=== PATIENT | male | born 1940 | race Caucasian/White ===

== ENCOUNTER → 2020-04-21 07:31 | Outpatient (CLI) | payer MEDICARE, SELFPAY ==
--- NOTE | ~2020-04-21 | XR_ITS ---
XR chest 2V DATE: 04/21/2020 07:50 INDICATION: Hypertension. Tobacco smoker. TECHNIQUE: PA and lateral views COMPARISON: 12/04/2018 2 view chest FINDINGS: Normal heart size. There is aortic calcification and mild unfolding. No hilar or mediastina l enlargement. No pulmonary infiltrate or consolidation, pleural effusion or pulmonary vascular congestion or pneumo thorax is detected. Degenerative spurring of the thoracic spine. Prosthetic right glenohumeral joint IMPRESSION: No active cardiopulmonary disease Aortic atherosclerosis Reviewed, dictated and finalized at location A. ASSOCIATE
== END ==
PROVIDERS: PCP Family Medicine; Visit Provider Family Medicine
DX: Z87.891 Personal history of nicotine dependence (principal); I10 Essential (primary) hypertension; I70.0 Atherosclerosis of aorta
CPT/HCPCS: 71046

== ENCOUNTER 2021-10-12 00:41 | Day surgery (SDC) | payer MEDICARE, SELFPAY ==
[2021-09-28 08:26] VITALS: BMI 29.3
[2021-10-12 11:40] VITALS: BP 157/78; PULSE 78; RESP 18; TEMP 36.1; O2SAT 100
[2021-10-12] MEDS: LACTATED RINGERS 1,000 ML 150 ML IV CONT (11:44)
--- NOTE | 2021-10-12 11:53 | WPDGICN ---
Assessment and Plan Assessment and plan (1) Positive colorectal cancer screening using Cologuard test: Code(s): R19.5 - Other fecal abnormalities Status: Acute Assessment and Plan: Patient has positive Cologuard test. For this reason screening colonoscopy will be performed. This report follows separately. GI Consult Note Consult date/time: 10/12/21 11:53 Reason for consult: Positive Cologuard test. HPI: Giovanni Escoto is a 81 year old male Presents for screening colonoscopy because of positive Cologuard test. Patient reports that his current weight appetite and bowel movements are normal. He denies abdominal pain. Patient has had no bleeding. Patient's last colonoscopy 15 years ago was unremarkable. Recently had Cologuard test was found to be positive. Patient returns today for screening colonoscopy because of this. Review of Systems Review of Systems: Review of systems noncontributory. [facility] Past Medical History Medical History (Updated 09/26/21 @ 07:09 by Marcellus Leroy MD) Basal cell carcinoma BMI greater than 30 Changing skin lesion CKD (chronic kidney disease) stage 3, GFR 30-59 ml/min Essential hypertension Need for tetanus booster Prostate cancer Screen for colon cancer Surgical History Surgical History H/O left knee surgery History of carpal tunnel release History of prostate surgery Family History Family History Other Malignant neoplasm of prostate Social History Social History Smoking packs per day: 1 Smoking cigarettes per day: 20.0 Years smoked: 40 Smoking pack-years: 40.00 Smoking status: Former smoker Tobacco type: cigarettes Alcohol intake: current Drinks per week: 7 Substance use: never Substance use type: does not use Living arrangements: with family Gender identity (if verbalized by the patient): Male Sexual Orientation (if Verbalized by the Patient): Straight or Heterosexual Meds Home Medications and Allergies Home Medications Medication Instructions Recorded Confirmed Type aspirin 81 mg tablet,delayed 81 mg PO DAILY 08/19/21 09/28/21 History release (Adult Aspirin Regimen) calcium carbonate 500 mg calcium 500 mg PO DAILY 09/28/21 09/28/21 History (1,250 mg) tablet cholecalciferol (vitamin D3) 25 25 mcg PO DAILY 09/28/21 09/28/21 History mcg (1,000 unit) tablet (Vitamin D3) cinnamon bark 500 mg capsule 500 mg PO DAILY 09/28/21 09/28/21 History garlic 300 mg tablet 300 mg PO DAILY 09/28/21 09/28/21 History magnesium oxide 400 mg PO DAILY 09/28/21 09/28/21 History multivitamin with minerals 1 tablet PO DAILY 09/28/21 09/28/21 History omega-3 fatty acids-vitamin E 1 cap PO DAILY 09/28/21 09/28/21 History 1,000 mg capsule vitamin B complex 1 tablet PO DAILY 09/28/21 09/28/21 History zinc 50 mg tablet 50 mg PO DAILY 09/28/21 09/28/21 History Allergies Allergy/AdvReac Type Severity Reaction Status Date / Time No Known Allergies Allergy Verified 10/12/21 11:39 Vital Signs Vital Signs - 24 hr 10/12/21 11:40 Temperature 97.0 F L Pulse Rate 78 Respiratory Rate 18 Blood Pressure 157/78 H Pulse Oximetry 100 Oxygen Delivery Room Air Exam Narrative: Physical exam reveals patient to be alert. Vital signs stable. HEENT exam is unremarkable. Patient is anicteric. Lungs are clear to auscultation and percussion. Heart is without murmur or extra sounds. Abdominal exam bowel sounds are present soft nontender with no organomegaly. Digital external rectal exam is normal.
--- NOTE | 2021-10-12 13:38 | WPDANESEPPF ---
Anes - Initial Pre Proc Eval Procedure: Operation Date: 10/12/21 13:00 Proposed Procedures p Colonoscopy - Jluis Bustamante MD Date/Time: 10/12/21 13:38 Surgeon: Jluis Bustamante MD Pre Op Diagnosis: positive cologuard Patient Data Age: 81 Gender: M Height: 1.7 m Weight: 85 kg Last Vital Signs Temp 97.0 F L 10/12/21 11:40 Pulse 78 10/12/21 11:40 Resp 18 10/12/21 11:40 BP 157/78 H 10/12/21 11:40 Pulse Ox 100 10/12/21 11:40 O2 Del Method Room Air 10/12/21 11:40 Allergies Allergy/AdvReac Type Severity Reaction Status Date / Time No Known Allergies Allergy Verified 10/12/21 11:39 Home Medications Medication Instructions Recorded Confirmed Type aspirin 81 mg tablet,delayed 81 mg PO DAILY 08/19/21 09/28/21 History release (Adult Aspirin Regimen) calcium carbonate 500 mg calcium 500 mg PO DAILY 09/28/21 09/28/21 History (1,250 mg) tablet cholecalciferol (vitamin D3) 25 25 mcg PO DAILY 09/28/21 09/28/21 History mcg (1,000 unit) tablet (Vitamin D3) cinnamon bark 500 mg capsule 500 mg PO DAILY 09/28/21 09/28/21 History garlic 300 mg tablet 300 mg PO DAILY 09/28/21 09/28/21 History magnesium oxide 400 mg PO DAILY 09/28/21 09/28/21 History multivitamin with minerals 1 tablet PO DAILY 09/28/21 09/28/21 History omega-3 fatty acids-vitamin E 1 cap PO DAILY 09/28/21 09/28/21 History 1,000 mg capsule vitamin B complex 1 tablet PO DAILY 09/28/21 09/28/21 History zinc 50 mg tablet 50 mg PO DAILY 09/28/21 09/28/21 History Patient hx anesthesia problems: none Family hx anesthesia problems: none Results Review: All pre-operative results and documents have been reviewed as part of the pre-operative evaluation. [facility] Past Medical History Medical History (Updated 09/26/21 @ 07:09 by Marcellus Leroy MD) Basal cell carcinoma BMI greater than 30 Changing skin lesion CKD (chronic kidney disease) stage 3, GFR 30-59 ml/min Essential hypertension Need for tetanus booster Prostate cancer Screen for colon cancer Surgical History Surgical History H/O left knee surgery History of carpal tunnel release History of prostate surgery Family History Family History Other Malignant neoplasm of prostate Social History Social History Smoking packs per day: 1 Smoking cigarettes per day: 20.0 Years smoked: 40 Smoking pack-years: 40.00 Smoking status: Former smoker Tobacco type: cigarettes Alcohol intake: current Drinks per week: 7 Substance use: never Substance use type: does not use Living arrangements: with family Gender identity (if verbalized by the patient): Male Sexual Orientation (if Verbalized by the Patient): Straight or Heterosexual Anes - Eval Final PreProcedure Day of Procedure 10/12/21 13:38 Patient weight: obese Heart: regular rate and rhythm Lungs: clear to auscultation Airway: Mallampati scale class III Neurological: alert and oriented Last oral intake: >/= 8 hours ASA classification: III Emergent: no Anesthetic plan: proceed Anesthesia type and monitoring: general GIVS and standard monitoring Results Review: All pre-operative results and documents have been reviewed as part of the pre-operative evaluation. Informed Consent: The patient's anesthetic plan and its attendant risks and benefits were discussed with the patient/family/POA. Questions were solicited and answers provided to the satisfaction of the patient/family/POA.
[2021-10-12 13:43] VITALS: BP 130/69; PULSE 78; RESP 14; O2SAT 97
[2021-10-12 13:53] VITALS: BP 124/65; PULSE 74; RESP 14; O2SAT 97
[2021-10-12 14:03] VITALS: BP 136/85; PULSE 72; RESP 16; O2SAT 97
== END 2021-10-12 14:16 | disposition home or self-care (01) ==
PROVIDERS: PCP Family Medicine; Visit Provider Internal Medicine Gastroenterology
PROC: 0DJD8ZZ Inspection of Lower Intestinal Tract, Via Natural or Artificial Opening Endoscopic (ICD-10-PCS; CPT 45378; principal; 2021-10-12 13:00)
DX: R19.5 Other fecal abnormalities (principal); K57.30 Diverticulosis of large intestine without perforation or abscess without bleeding; K64.8 Other hemorrhoids; I12.9 Hypertensive chronic kidney disease with stage 1 through stage 4 chronic kidney disease, or unspecified chronic kidney disease; N18.30 Chronic kidney disease, stage 3 unspecified; Z87.891 Personal history of nicotine dependence; Z79.82 Long term (current) use of aspirin
CPT/HCPCS: 45378; J2001; J2704; J7120

== ENCOUNTER → 2023-04-13 10:51 | Outpatient (CLI) | payer MEDICARE, SELFPAY ==
--- NOTE | ~2023-04-13 | XR_ITS ---
XR forearm LT 2V DATE: 04/13/2023 11:06 INDICATION: Disorder of bone TECHNIQUE: AP and lateral views COMPARISON: None FINDINGS: Mild dorsal olecranon process spurring. 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 Severe osteoarthritic change at the radial ulnar joint. There is osteoarthritic change at the carpal region including first carpometacarpal joint. No fracture or dislocation, periosteal reaction or bone destruction is detected. 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
== END ==
PROVIDERS: PCP Family Medicine; Visit Provider Family Medicine
DX: M89.8X3 Other specified disorders of bone, forearm (principal); M19.032 Primary osteoarthritis, left wrist
CPT/HCPCS: 73090

== ENCOUNTER → 2023-05-17 11:13 | Outpatient (CLI) | payer MEDICARE, SELFPAY ==
--- NOTE | ~2023-05-17 | XR_ITS ---
Clinical Indication: Subacute cough PA and lateral views of the chest: Comparison: 04/21/2020 Findings: The lungs are clear, without evidence of focal consolidation or pleural effusion. Cardiome diastinal silhouette is within normal limits. Bones and soft tissues are unremarkable, aside from rig ht shoulder arthroplasty. Impression: Normal chest. Reviewed, dictated and finalized at location . RAGE MANAGER Impression: Normal chest.
== END ==
PROVIDERS: PCP Family Medicine; Visit Provider Family Medicine
DX: R05.2 Subacute cough (principal); D64.9 Anemia, unspecified; N18.31 Chronic kidney disease, stage 3a
CPT/HCPCS: 71046

== ENCOUNTER 2024-07-08 14:58 | Emergency (ER) | payer MEDICARE, SELFPAY ==
[2024-07-08 15:04] VITALS: BP 170/81; PULSE 81; RESP 18; TEMP 36.6; O2SAT 96
--- NOTE | 2024-07-08 15:47 | ED_ITS ---
HPI - Wound/Laceration General Chief Complaint: Wound/Laceration Stated Complaint: laceration to top of R. hand, fat exposed Time Seen by Provider: 07/08/24 15:46 Source: patient Mode of arrival: ambulatory Limitations: no limitations History of Present Illness HPI narrative: This is a 84-year-old male who presents to the ED for chief complaint of right hand laceration injury that occurred just prior to arrival. Patient states he was working with a band saw when his hand accidentally slipped. Reports laceration to the dorsum of the right hand. Denies loss of range of motion or sensation. Denies weakness. Denies any further injury. States last tetanus shot was 2 years ago. Related Data Home Medications ?Medication ?Instructions ?Recorded ?Confirmed ?Last Taken ?Type aspirin 81 mg tablet,delayed 81 mg PO DAILY 08/19/21 06/19/24 10/11/21 History release (Adult Aspirin Regimen) calcium carbonate 500 mg PO DAILY 09/28/21 06/19/24 10/11/21 History cholecalciferol (vitamin D3) 25 25 mcg PO DAILY 09/28/21 06/19/24 10/11/21 History mcg (1,000 unit) tablet (Vitamin D3) magnesium oxide 400 mg PO DAILY 09/28/21 06/19/24 10/11/21 History multivitamin with minerals 1 tablet PO DAILY 09/28/21 06/19/24 10/11/21 History omega-3 fatty acids-vitamin E 1 cap PO DAILY 09/28/21 06/19/24 10/11/21 History 1,000 mg capsule zinc 50 mg tablet 50 mg PO DAILY 09/28/21 06/19/24 10/11/21 History vitamin A-vitamin C-vit E-min 1 tablet PO DAILY 10/03/22 06/19/24 Unknown History tablet potassium citrate 99 mg capsule mg PO 12/08/22 06/19/24 Unknown History cinnamon bark 500 mg capsule 500 mg PO DAILY 03/18/24 06/19/24 Unknown History selenium 200 mcg capsule 200 mcg PO DAILY 03/18/24 06/19/24 Unknown History vit C 50 mg-E 15 unit-zinc cit 4.5 2 tablet PO DAILY 03/18/24 06/19/24 Unknown History mg-lutein 2.5 mg-zeaxan chew tablet (ipvive) Allergies Allergy/AdvReac Type Severity Reaction Status Date / Time No Known Allergies Allergy Verified 07/08/24 14:59 Review of Systems Review of Systems: All systems as dictated in [facility] Past Medical History Medical History Open-angle glaucoma Vitamin D deficiency Cough Pain in left ulna Arthritis of wrist Anemia BMI (body mass index) 20.0-29.9 Basal cell carcinoma CKD (chronic kidney disease) stage 3, GFR 30-59 ml/min Need for tetanus booster Screen for colon cancer Essential hypertension Changing skin lesion BMI greater than 30 Prostate cancer Surgical History Surgical History History of prostate surgery H/O left knee surgery History of carpal tunnel release Family History Family History Father Malignant neoplasm of prostate Mother No problems noted. Sibling CHF (congestive heart failure) Obesity Sibling Diabetes mellitus Social History Social History Smoking packs per day: 1 Smoking cigarettes per day: 20.0 Years smoked: 40 Smoking pack-years: 40.00 Smoking status: Former smoker (Quit ~2004) Tobacco type: cigarettes Second hand tobacco smoke exposure: Yes Alcohol intake: current Drinks per week: 7 Substance use: never Substance use type: does not use Lack of Transportation: No Lack of Food: Never True Current Housing: I Have Housing Concerned About Future Housing: No Difficulty Paying Gas/Electric Bills: No Difficulty Paying for Meds: No Currently Unemployed: No Education: High School Diploma/GED Difficulty w/ Childcare or Family Care: No Living arrangements: with family Occupation/Education: retired 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 Gender identity (if verbalized by the patient): Male Sexual Orientation (if Verbalized by the Patient): Straight or Heterosexual Exam Narrative: GENERAL: Well-appearing, well-nourished, and in no acute distress. HEAD: Normocephalic, atraumatic. MSK: Normal range of motion. No edema. Full strength of the right hand. SKIN: 3 cm laceration to the dorsum of the right hand just proximal to 4th and 5th M CP. No active bleeding. NEURO: Alert and oriented x4. No focal deficits. PSYCH: Normal mood and affect. Course Vital Signs Vital signs: Vital Signs Temperature 98 F 07/08/24 15:04 Pulse Rate 81 07/08/24 15:04 Respiratory Rate 18 07/08/24 15:04 Blood Pressure 170/81 H 07/08/24 15:04 Pulse Oximetry 96 07/08/24 15:04 Oxygen Delivery Room Air 07/08/24 15:04 Temperature 98 F 07/08/24 15:04 Pulse Rate 81 07/08/24 15:04 Respiratory Rate 18 07/08/24 15:04 Blood Pressure 170/81 H 07/08/24 15:04 Pulse Oximetry 96 07/08/24 15:04 Oxygen Delivery Room Air 07/08/24 15:04 Procedures Laceration Laceration 1: Date: 07/08/24 Time: 16:15 Site: hand Side (If applicable): right Size (cm): 3 Description: linear Depth: involves tendon Local Anesthetic: lidocaine 1% and with epi Amount of anesthesia used (mL): 2 Pre-repair: wound explored and irrigated extensively ====== Skin Level ====== Skin layer closed with: nylon Size (cm): 4-0 Number of sutures: 5 Technique: simple, interrupted ====== Subcutaneous Layer ====== Subcutaneous layer closed with: vicryl Size: 4-0 Number of sutures: 1 Technique: simple, interrupted ====== Muscle Layer ====== ====== Tendon Layer ====== MDM - Wound/Laceration MDM Narrative Medical decision making narrative: This is a 84-year-old male who presents to the ED for chief complaint of laceration injury that occurred just prior to arrival. Vitals are normal. Exam remarkable for the above with a 3 cm laceration to the dorsum of the right hand. No active bleeding. There is slight tendon damage noted in the wound bed, however is strength is preserved. Laceration was well irrigated and cleaned here in the ED. It was closed primarily with nylon sutures at the skin level. One 4-0 Vicryl suture was placed in the extensor tendon. Remained neurovascularly intact after sutures. Laceration instructions given. Rx for prophylactic antibiotics given. He is up-to-date on tetanus Patient will be discharged in stable condition. Supportive measures discussed and return precautions given. Patient is understanding and agreeable with plan for discharge with PCP follow-up. Discharge Plan Discharge Clinical Impression: Laceration Patient Disposition: Home, Self-Care Condition: Stable Instructions: Antibiotic Form, Laceration (ED) Additional Instructions: Keep wound clean and dry. Do not soak, take baths, or swim until wound is completely healed. If any signs of infection such as redness, swelling, increasing pain, drainage of purulent discharge, streaks up your extremity develop, seek medical attention immediately. Followup with your primary care provider in [7] days for suture removal. Please also take preventative antibiotics as prescribed Patient Language: Solomon Islander Prescriptions: New cephalexin 500 mg capsule 500 mg PO Q8H 5 Days Qty: 15 0RF No Action vitamin A-vitamin C-vit E-min Tablet 1 tablet PO DAILY amlodipine 5 mg tablet 5 mg PO DAILY Qty: 90 1RF aspirin [Adult Aspirin Regimen] 81 mg tablet,delayed release (DR/EC) 81 mg PO DAILY potassium citrate 99 mg capsule PO diclofenac sodium 1 % gel 2 g topical QID Qty: 100 0RF Rx Instructions: apply to left forearm [facility] 50 mg-15 unit- 4.5 mg-2.5 mg tablet,chewable 2 tablet PO DAILY cinnamon bark 500 mg capsule 500 mg PO DAILY selenium 200 mcg capsule 200 mcg PO DAILY ICaps Tablet Extended Release 1 tablet PO DAILY calcium carbonate [Calcium 500] 500 mg calcium (1,250 mg) Tablet 500 mg PO DAILY zinc 50 mg Tablet 50 mg PO DAILY Fish Oil 1,000 mg Capsule 1 cap PO DAILY cholecalciferol (vitamin D3) [Vitamin D3] 25 mcg (1,000 unit) Tablet 25 mcg PO DAILY magnesium oxide 400 mg magnesium Tablet 400 mg PO DAILY pantoprazole 40 mg tablet,delayed release (DR/EC) See Rx Instructions .ROUTE .COMPLEX Qty: 90 3RF Dose Instruction: TAKE 1 TABLET BY MOUTH EVERY DAY IN THE MORNING Rx Instructions: TAKE 1 TABLET BY MOUTH EVERY DAY IN THE MORNING Follow-up/Referrals: Marcellus Leroy MD [Primary Care Provider] - Time of Disposition: 16:14
--- OUTSIDE RECORDS SUMMARY | 2024-07-08 17:31 | XMS_ITS | Encounter Summary ---
Author Organization [facility] Address [address] [place] [address] Care Team Providers Care Ad Clerk Name Role Phone Unavailable Primary Care Provider Unavailabl e Encounter Details Date Type Department Care Team (Late st Contact Info) Description 09/16/2021 Lab Requisition [facility] [address] [place] [phone] Marcellus Leroy MD [address] [place] [address] Social History Tobacco Use Types Packs/Day Years Used Date Smoking Tobacco: Never Assessed Sex and Gender Information Value Date Recorded Sex Assigned at Not on file Gender Identity Not on file Sexual Orientation Not on file documented as of this encounter Plan of Treatment Not on file documented as of this encounter Procedures Procedure Name Priority Date/Time Associated Diagnosis Comments DERMATOPATHOLOGY Routine 09/15/2021 12:0 0 AM CDT documented in this encounter Results * DERMATOPATHOLOGY (09/15/2021 12:00 AM CDT) Case Report Dermatopathology Report Case: [id number] Authorizing Provider: Marcellus Leroy MD Collected: 09/15/2021 12:00 AM Ordering Location: [facility] Received: 09/16/2021 04:35 PM Pathologist: Suma Malik MD Specimen: Skin, left forearm 2 2:50 PM CDT DERMATOPATHOLOGY LABORATORY Final Diagnosis Specimen A. SKIN, left forearm: BASAL CELL CARCINOMA, INFILTRATIVE PATTERN (C44.619) PRESENT AT MARGIN 2 2:50 PM CDT DERMATOPATHOLOGY LABORATORY Clinical History Changing Lesion. Please Check Margins. 2 2:50 PM CDT DERMATOPATHOLOGY LABORATORY Gross Description Specimen A: Received is one formalin filled container labeled with the patient's name and designated left forearm. The specimen consists of a shave biopsy measuring [id number]. The specimen is inked and bisected. Jar 0. 2 2:50 PM CDT DERMATOPATHOLOGY LABORATORY Microscopic Description Specimen A. SKIN, left forearm: Within the dermis there are nodular aggregates of basaloid cells associated with fibromyxoid stroma and epithelial-stromal clefts. At the advancing margin of the neoplasm, there are smaller angulated nests that infiltrate the dermis. This lesion is present at the margin of the specimen. 2 2:50 PM CDT DERMATOPATHOLOGY LABORATORY Disclaimer An external and internal positive and negative controls are appropriate for the histochemical, immunohistochemical and immunofluorescence stain(s) in this case (if any), except where stated explicitly. The performance characteristics of the stain(s) cited in this report were developed and its performance characteristic determined by the Dermatopathology Laboratory at [facility], directed by Dr. Vinicio Johnson. These tests need not be, and therefore are not, approved by the [place] Food and Drug Administration. The tests are used for clinical purposes. Billing Codes Specimen Charges Stain Charges 12616 1 2 2:50 PM CDT DERMATOPATHOLOGY LABORATORY Embedded Images 2 2:50 PM CDT DERMATOPATHOLOGY LABORATORY Pathology/Cytolog y TISSUE SPECIMEN FROM SKIN / Unknown 09/15/2021 09/16/2021 4:35 PM CDT Marcellus Leroy MD LAB - PATHOLOGY/CYTO LOGY ORDERABLES DERMATOPATHOLOGY LABORATORY [facility] - Department of Dermatology [address], [address] [phone] documented in this encounter Visit Diagnoses Not on filedocumented in this encounter
--- OUTSIDE RECORDS SUMMARY | 2024-07-08 17:31 | XMS_ITS | Clinical Summary ---
Author Organization [facility] Address [address] [place] [address] Care Team Providers Care Slot Supervisor Name Role Phone Unavailable Primary Care Provider Unavailabl e Source Comments [facility],non-owned Affiliates and Associated Physician Practices is amultiple site organization consisting of ambulatory clinics and hospital sitesin [place], [place], [place] and [place]. This disclosure is being madepursuant to the Care Everywhere program and may not contain all information available regarding this patient. Last updated 18.[facility] Social History Tobacco Use Types Packs/Day Years Used Date Smoking Tobacco: Never Assessed Sex and Gender Information Value Date Recorded Sex Assigned at Not on file Gender Identity Not on file Sexual Orientation Not on file Plan of Treatment Health Maintenance Due Date Last Done Comments DTAP/TDAP/TD VACCINES (1 - Tdap) 1960 PNEUMOCOCCAL VACCINE 50+ (1 of 1 - PCV) 1991 ZOSTER VACCINE (1 of 2) 1991 Respiratory Syncytial Virus (RSV) Vaccine Pt: or over 60 yrs (1 - 1-dose 75+ series) 2016 COVID-19 VACCINE (2023-2 5 season) 2024 INFLUENZA VACCINE (#1) 2024 DEPRESSION SCREENING 05/14/2024 HEPATITIS B VACCINE Aged Out No longe r eligible based on patient's age to complete this topic HIB VACCINE Aged Out No longer eligi ble based on patient's age to complete this topic HPV VACCINE Aged Out No longer eligi ble based on patient's age to complete this topic MENINGOCOCCAL (Group B) VACCINE Aged Out No longer eligible based on patient's age to complete this topic MENINGOCOCCAL VACCINE Aged Out No nick surya eligible based on patient's age to complete this topic [id number] [id number]
--- OUTSIDE RECORDS SUMMARY | 2024-07-08 17:31 | XMS_ITS | Clinical Summary ---
Author Organization [facility] Address [address] [place] [id number] Care Team Providers Care Commissioner Of Conciliation Name Role Phone Fran Rodriguez MD Primary Care Provider Social History Tobacco Use Types Packs/Day Years Used Date Smoking Tobacco: Never Assessed Sex and Gender Information Value Date Recorded Sex Assigned at Not on file Legal Sex Male 1:53 PM CDT Gender Identity Not on file Sexual Orientation Not on file Plan of Treatment Health Maintenance Due Date Last Done Comments DTaP, Tdap and Td Vaccines ( 1 - Tdap) 1960 Zoster Vaccines (1 of 2) 1991 Annual Medicare Wellness Visit 2006 Pneumococcal Vaccine: 65+ Ye ars (1 of 1 - PCV) 2006 RSV Immunization or 60+ Years (1 - 1-dose 75+ series) 2016 COVID-19 Vaccine (2023-2 5 season) 2024 Influenza Adult (#1) 2024 Meningococcal B Vaccine Aged Out No l onger eligible based on patient's age to complete this topic Meningococcal Vaccine Aged Out No nick surya eligible based on patient's age to complete this topic RSV Immunizations Under 20 Months Aged Out No longer eligible based on patient's age to complete this topic Insurance [employer] Care Teams Commissioner Of Conciliation Relationship Specialty Start Date End Date Fran Rodriguez MD [address] [phone] PCP - General FAMILY PRACTICE 09/13/20
--- OUTSIDE RECORDS SUMMARY | 2024-07-08 17:31 | XMS_ITS | Patient Health Summary ---
Author Organization [facility] Address [address] [place] [address] Care Team Providers Care Finishing Room Operator Name Role Phone Unavailable Primary Care Provider Unavailabl e Note from [facility],non-owned Affiliates and Associated Physician Practices is amultiple site organization consisting of ambulatory clinics and hospital sitesin [place], [place], [place] and [place]. This disclosure is being madepursuant to the Care Everywhere program and may not contain all information available regarding this patient. Last updated 18.[facility] Social History Tobacco Use Types Packs/Day Years Used Date Smoking Tobacco: Never Assessed Sex and Gender Information Value Date Recorded Sex Assigned at Not on file Gender Identity Not on file Sexual Orientation Not on file Procedures * DERMATOPATHOLOGY(Performed 09/15/2021) Results * DERMATOPATHOLOGY (09/15/2021 12:00 AM CDT) Case Report Dermatopathology Report Case: [id number] Authorizing Provider: Marcellus Leroy MD Collected: 09/15/2021 12:00 AM Ordering Location: [facility] DermPath Lab Received: 09/16/2021 04:35 PM Pathologist: [...] specimen consists of a shave biopsy measuring [id number]. The specimen is inked and bisected. Jar [...] characteristic determined by the Dermatopathology Laboratory at [facility], directed by Dr. Vinicio Johnson. These tests need not be, and therefore are not, approved by the [place] Food and Drug Administration. The tests are used for clinical purposes. Billing Codes Specimen Charges Stain Charges 00140 1 2 2:50 PM CDT DERMATOPATHOLOGY LABORATORY Embedded Images 2 2:50 PM CDT DERMATOPATHOLOGY LABORATORY Pathology/Cytolog y TISSUE SPECIMEN FROM SKIN / Unknown 09/15/2021 09/16/2021 4:35 PM CDT Marcellus Leroy MD LAB - PATHOLOGY/CYTO LOGY ORDERABLES DERMATOPATHOLOGY LABORATORY [facility] - Department of Dermatology [address], [address] [phone]
--- OUTSIDE RECORDS SUMMARY | 2024-07-08 17:31 | XMS_ITS | Referral Summary ---
Author Organization [facility] Address [address] [place] [address] Care Team Providers Care Compressor Operator Name Role Phone Unavailable Primary Care Provider Unavailabl e Source Comments [facility],non-owned Affiliates and Associated Physician Practices is amultiple site organization consisting of ambulatory clinics and hospital sitesin [place], [place], [place] and [place]. This disclosure is being madepursuant to the Care Everywhere program and may not contain all information available regarding this patient. Last updated 18.[facility] [employer] Social History Tobacco Use Types Packs/Day Years Used Date Smoking Tobacco: Never Assessed Sex and Gender Information Value Date Recorded Sex Assigned at Not on file Gender Identity Not on file Sexual Orientation Not on file Plan of Treatment Not on file
--- OUTSIDE RECORDS SUMMARY | 2024-07-08 18:27 | XMS_ITS | Clinical Summary ---
Author Organization [facility] Address [address] [place] [address] Care Team Providers Care State Trooper Name Role Phone Unavailable Primary Care Provider Unavailabl e Source Comments [facility] [employer],non-owned Affiliates and Associated Physician Practices is amultiple site organization consisting of ambulatory clinics and hospital sitesin [place], [place], [place] and [place]. This disclosure is being madepursuant to the Care Everywhere program and may not contain all information available regarding this patient. Last updated 18.[facility] [employer] Social History Tobacco Use Types Packs/Day Years [...] on patient's age to complete this topic [id number] [id number]
--- OUTSIDE RECORDS SUMMARY | 2024-07-08 18:27 | XMS_ITS | Referral Summary ---
Author Organization [facility] Address [address] [place] [address] Care Team Providers Care Crop Grain Or Livestock Farm Manager Name Role Phone Unavailable Primary Care Provider Unavailabl e Source Comments [facility],non-owned Affiliates and Associated Physician Practices is amultiple site organization consisting of ambulatory clinics and hospital sitesin [place], [place], [place] and [place]. This disclosure is being madepursuant to the Care Everywhere program and may not contain all information available regarding this patient. Last updated 18.[facility] [employer] Social History Tobacco Use Types Packs/Day Years Used Date Smoking Tobacco: Never Assessed Sex and Gender Information Value Date Recorded Sex Assigned at Not on file Gender Identity Not on file Sexual Orientation Not on file Plan of Treatment Not on file
--- OUTSIDE RECORDS SUMMARY | 2024-07-08 18:27 | XMS_ITS | Patient Health Summary ---
Author Organization [facility] Address [address] [place] [address] Care Team Providers Care Aerospace Engineer Name Role Phone Unavailable Primary Care Provider Unavailabl e Note from [facility],non-owned Affiliates and Associated Physician Practices is amultiple site organization consisting of ambulatory clinics and hospital sitesin [place], [place], [place] and [place]. This disclosure is being madepursuant to the Care Everywhere program and may not contain all information available regarding this patient. Last updated 18.[facility] Social History Tobacco Use Types Packs/Day Years Used Date Smoking Tobacco: Never Assessed Sex and Gender Information Value Date Recorded Sex Assigned at Not on file Gender Identity Not on file Sexual Orientation Not on file Procedures * DERMATOPATHOLOGY(Performed 09/15/2021) Results * DERMATOPATHOLOGY (09/15/2021 12:00 AM CDT) Case Report Dermatopathology Report Case: [id number] Authorizing Provider: Marcellus Leroy MD Collected: 09/15/2021 12:00 AM Ordering Location: [facility] Derm[facility] Lab Received: 09/16/2021 04:35 PM Pathologist: [...] specimen consists of a shave biopsy measuring [id number]. The specimen is inked and bisected. Jar [...] characteristic determined by the Dermatopathology Laboratory at [facility], directed by Dr. Vinicio Johnson. These tests need not be, and therefore are not, approved by the [place] Food and Drug Administration. The tests are used for clinical purposes. Billing Codes Specimen Charges Stain Charges 14597 1 2 2:50 PM CDT DERMATOPATHOLOGY LABORATORY Embedded Images 2 2:50 PM CDT DERMATOPATHOLOGY LABORATORY Pathology/Cytolog y TISSUE SPECIMEN FROM SKIN / Unknown 09/15/2021 09/16/2021 4:35 PM CDT Marcellus Leroy MD LAB - PATHOLOGY/CYTO LOGY ORDERABLES DERMATOPATHOLOGY LABORATORY [facility] - Department of Dermatology [address] [phone]
--- OUTSIDE RECORDS SUMMARY | 2024-07-08 18:27 | XMS_ITS | Encounter Summary ---
Author Organization [facility] Address [address] [place] [address] Care Team Providers Care Health Assistant Name Role Phone Unavailable Primary Care Provider Unavailabl e Encounter Details Date Type Department Care Team (Late st Contact Info) Description 09/16/2021 Lab Requisition [facility] DermPath Lab [address] [place] [phone] Marcellus Leroy MD [address] [place] [address] Social History Tobacco Use Types [...] AM CDT) Case Report Dermatopathology Report Case: [id number] Authorizing Provider: Marcellus Leryo MD Collected: 09/15/2021 12:00 AM Ordering Location: [facility] DermPath Lab Received: 09/16/2021 04:35 PM Pathologist: [...] specimen consists of a shave biopsy measuring [id number]. The specimen is inked and bisected. Jar [...] characteristic determined by the Dermatopathology Laboratory at [facility], directed by Dr. Vinicio Johnson. These tests need not be, and therefore are not, approved by the [place] Food and Drug Administration. The tests are used for clinical purposes. Billing Codes Specimen Charges Stain Charges 04878 1 2 2:50 PM CDT DERMATOPATHOLOGY LABORATORY Embedded Images 2 2:50 PM CDT DERMATOPATHOLOGY LABORATORY Pathology/Cytolog y TISSUE SPECIMEN FROM SKIN / Unknown 09/15/2021 09/16/2021 4:35 PM CDT Marcellus Leroy MD LAB - PATHOLOGY/CYTO LOGY ORDERABLES DERMATOPATHOLOGY LABORATORY [facility] - Department of Dermatology [address] [phone] documented in this encounter Visit Diagnoses Not on filedocumented in this encounter
--- OUTSIDE RECORDS SUMMARY | 2024-07-08 18:27 | XMS_ITS | Clinical Summary ---
Author Organization [facility] Address [address] [place] [id number] Care Team Providers Care Scrap Baler Name Role Phone Fran Rodriguez MD Primary [...] complete this topic Insurance [employer] Care Teams Scrap Baler Relationship Specialty Start Date End Date Fran Rodriguez MD [address] [phone] PCP - General FAMILY PRACTICE 09/13/20
== END 2024-07-08 16:58 | disposition home or self-care (01) ==
LOC: ANHED 16:01
PROVIDERS: Emergency Provider Physician Assistant; PCP Family Medicine
DX: S61.411A Laceration without foreign body of right hand, initial encounter (principal); I12.9 Hypertensive chronic kidney disease with stage 1 through stage 4 chronic kidney disease, or unspecified chronic kidney disease; N18.30 Chronic kidney disease, stage 3 unspecified; E55.9 Vitamin D deficiency, unspecified; H40.10X0 Unspecified open-angle glaucoma, stage unspecified; Z85.46 Personal history of malignant neoplasm of prostate; Z85.828 Personal history of other malignant neoplasm of skin; Z86.2 Personal history of diseases of the blood and blood-forming organs and certain disorders involving the immune mechanism; Z87.891 Personal history of nicotine dependence; Z79.82 Long term (current) use of aspirin; Z79.899 Other long term (current) drug therapy; W31.2XXA Contact with powered woodworking and forming machines, initial encounter
CPT/HCPCS: 12042; 99282; J2004

== ENCOUNTER 2025-03-19 09:06 | Outpatient (CLI) | payer MEDICARE, SELFPAY ==
--- NOTE | ~2025-03-19 | XR_ITS ---
EXAMINATION: XR shoulder LT min 2V DATE: 03/19/2025 09:28 INDICATION: Left shoulder pain TECHNIQUE: AP internally and externally rotated, AP oblique externally rotated and transscapular Y views of the left shoulder were obtained. COMPARISON: None FINDINGS: Normal alignment. No fracture. Left glenohumeral osteoarthritis with severe joint space narrowing at the cephalad aspect of the joint space. Mild acromioclavicular osteoarthritis with loose body versus heterotopic ossicle at the cephalad aspect the joint space. Soft tissues are unremarkable. Visualized portions of the left lung are clear. IMPRESSION: Severe left glenohumeral osteoarthritis. Reviewed, dictated and finalized at location A. 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
== END 2025-03-19 09:07 | disposition home or self-care (01) ==
LOC: MICIMG 09:08
PROVIDERS: PCP Family Medicine; Visit Provider Family Medicine
DX: M19.012 Primary osteoarthritis, left shoulder (principal)
CPT/HCPCS: 73030